=== PATIENT | male | born 1950 | race Caucasian/White ===

== ENCOUNTER 2017-10-19 08:57 | Day surgery (SDC) | payer MEDICARE, OTHER ==
[2017-10-19] VITALS (8 sets, daily range): BP systolic 101–145; BP diastolic 56–95; PULSE 55–83; RESP 17–20; TEMP 97.8–98; O2SAT 95–97
[~2017-10-19] VITALS: Ht 170.2 cm; Wt 77.3 kg
[2017-10-19] MEDS ORDERED: VITATAB11 (09:20)
[2017-10-19] MEDS ORDERED: ASPI81CH6 CHEW (09:20)
[2017-10-19] MEDS ORDERED: LISI10TA3 PO (09:20)
[2017-10-19] MEDS ORDERED: CURCPOW (09:20)
[2017-10-19] MEDS ORDERED: MULT-65 PO (09:20)
[2017-10-19] MEDS ORDERED: FISHCAP4 PO (09:20)
[2017-10-19] MEDS ORDERED: TUMERIC COMPLEX (09:20)
[2017-10-19] MEDS ORDERED: COEN400C (09:20)
[2017-10-19] MEDS ORDERED: NAPR220C22 (09:22)
[2017-10-19] MEDS ORDERED: GLUC15009 PO (09:22)
[2017-10-19] MEDS ORDERED: SODIUM CHLOR 0.9% 1000 ML INJ 1,000 ML IV SCH (09:30)
[2017-10-19] MEDS ORDERED: MIDAZOLAM HCL 2 MG/2 ML VIAL ONE (10:58)
[2017-10-19] MEDS ORDERED: HYDROmorphone HCL 2 MG TAB PO PRN (12:15)
--- NOTE | 2017-10-19 12:16 | PD.RAD ---
Post CT Procedure Prog Note Pre Procedure Diagnosis: (1) Elevated LFTs Post Procedure Diagnosis: (1) Elevated LFTs Procedure Date: Oct 19, 2017 Supervising Radiologist: Davis Colon Anesthesia: Conscious Sedation Plan of Activity Patient to Unit: ROPU Patient Condition: Good See PACS Report for procedural detail/treatment Biopsy Imaging Guidance: CT Side: Right Biopsy Procedure: Liver Specimen: Core Biopsy Plan to ROPU then discharge in 4 hours if criteria met. Davis Colon MD Oct 19, 2017 12:16
--- NOTE | 2017-10-19 13:06 | RADRPT ---
EXAM DATE: 10/19/2017 12:28 PM EDT AGE/SEX: 67 years / Male INDICATIONS: Elevated liver functions CLINICAL DATA: This is the patient's initial encounter. Patient reports that signs and symptoms have been present for 1 day and indicates a pain score of 0/10. MEDICAL/SURGICAL HISTORY: None. None. COMPARISON: No prior [place] exams available for comparison. SEDATION TIME (min): 15 BIOPSY SITE: . liver MEDICATION(S): 2.5 mg midazolam (Versed) IV 150mcg fentanyl (Sublimaze) IV DEVICE(S): 18 gauge Temno core biopsy needle . . PROCEDURE: CT guided . liver biopsy Prior to the procedure informed consent was obtained. Any appropriate prior imaging studies were rev iewed. Using automated exposure control and adjustment of the mA and/or kV according to patient size, radiat ion dose was kept as low as reasonably achievable to obtain optimal diagnostic quality images. DICOM format image data is available electronically for review and comparison. The site was prepped in a sterile fashion. Full sterile technique was used, including cap, mask, adeel rile gloves and gown and a large sterile sheet. Hand hygiene and 2% chlorhexidine and/or betadine/al cohol prep was utilized per protocol for cutaneous antisepsis. The skin and subcutaneous tissues wer e infiltrated with local anesthetic solution. With CT guidance the right lobe of the liver was localized. Biopsy was performed using the prescribed needle as above. Adequate hemostasis was obtained with compression at the puncture site. Follow-up CT scan reveals no hemorrhage. The patient tolerated the procedure well and there were no complications. The patient was returned to the Radiology Outpatient Unit in stable condition. FINDINGS: Liver density is less than spleen density indicating steatosis. CONCLUSION: Uncomplicated CT guided biopsy of the right lobe of the liver. Electronically signed by: Davis Colon MD 10/19/2017 1:05 PM EDT
== END 2017-10-19 16:00 | disposition home or self-care (01) ==
LOC: HRAD 08:57 → HRIP 09:00 → HRAD 16:00
PROVIDERS: ATTEND Internal Medicine Gastroenterology
DX: K76.0 Fatty (change of) liver, not elsewhere classified (principal); R94.5 Abnormal results of liver function studies
CPT/HCPCS: 47000; 77012; 88307; 88313; 99152; J2250; J3010; J7030